=== PATIENT | male | born 1960 | race Caucasian/White ===

== ENCOUNTER 2016-04-18 11:48 | Day surgery (SDC) | payer BC ==
[~2016-04-18 11:48] MED LIST: Buffered Lidocaine 1% SYR 3ML* 3 ML/SYR SYRINGE INTRADERM ONE; Dexamethasone IV* 4 MG/ML 1 ML (4 MG) IV SLOW PU ONE; Famotidine IV* 10 MG/ML 2 ML (20 mg) IV ONE
[2016-04-18] MEDS ORDERED: Dexamethasone IV* 4 MG/ML 1 ML (4 MG) ONE (12:08)
[2016-04-18] MEDS ORDERED: ceFAZolin 2 GM PREMIX (*) 2 GM/50 ML BAG IVPB ONE (12:08)
[2016-04-18] MEDS ORDERED: Famotidine IV* 10 MG/ML 2 ML (20 mg) ONE (12:08)
[2016-04-18] MEDS ORDERED: Buffered Lidocaine 1% SYR 3ML* 3 ML/SYR SYRINGE ONE (12:09)
[2016-04-18] MEDS ORDERED: Bupivacaine 0.5% W/EPI SDV* 30 ML VIAL ONE (12:29)
[2016-04-18] MEDS ORDERED: fentaNYL* 50 MCG/ML 5 ML VIAL (250 MCG VIAL) ONE (13:10)
[2016-04-18] MEDS ORDERED: Atracurium* 10 MG/ML 10 ML VIAL ONE (13:11)
[2016-04-18] MEDS ORDERED: Ondansetron INJ* 2 MG/ML VIAL ONE (13:11)
[2016-04-18] MEDS ORDERED: Midazolam* 1 MG/ML 5 ML VIAL (5 MG) ONE (13:11)
[2016-04-18] MEDS ORDERED: Ketorolac INJ* 30 MG/ML 1 ML VIAL ONE (13:11)
[2016-04-18] MEDS ORDERED: Propofol* 10 MG/ML 20 ML BTL IV PUSH ONE (13:11)
[2016-04-18] MEDS ORDERED: Lidocaine 2% MPF* 2 ML VIAL ONE (13:11)
[2016-04-18] MEDS ORDERED: EPHEDrine (Pressors)* 50 MG/ML VIAL ONE (13:35)
[2016-04-18] MEDS ORDERED: oxyCODONE/Acetamin 5/325 MG* TAB PO PRN ×3 (13:52→14:51)
[2016-04-18] MEDS ORDERED: Desflurane* 240 ML INH ONE (13:54)
[2016-04-18] MEDS ORDERED: Ondansetron INJ* 2 MG/ML VIAL IV PRN (13:57)
[2016-04-18] MEDS ORDERED: fentaNYL* 50 MCG/ML 2 ML VIAL (100 MCG VIAL) IV PRN (13:57)
[2016-04-18] MEDS ORDERED: DiMENhydriNATE IV* 50 MG/ML VIAL IV PUSH PRN (13:57)
[2016-04-18] MEDS ORDERED: HYDROmorphone INJ* 1 MG/ML CARPUJECT SYRINGE IV PRN (13:57)
[2016-04-18] MEDS ORDERED: Scopolamine 1.5 mg* PATCH TRANSDERM PRN (13:57)
[2016-04-18 16:16] VITALS: BP 102/84
--- NOTE | 2016-04-20 20:46 | OP ---
CC: Kit Ellison MD OPERATIVE REPORT: DATE OF OPERATION: 04/18/16 DATE OF : 56 SURGEON: Bob Jones MD. DIRECTOR OF UNDERGRADUATE ADMISSIONS: None. ANESTHESIOLOGIST: Dr. Ivan. ANESTHESIA: General endotracheal. PREOPERATIVE DIAGNOSIS: Bilateral inguinal hernias. POST-OP DIAGNOSIS: Bilateral inguinal hernias. PROCEDURES: Laparoscopic preperitoneal repair of bilateral inguinal hernias with mesh. ESTIMATED BLOOD LOSS: Minimal. IV FLUIDS: Crystalloids. SPECIMEN: None. DRAINS: None. COMPLICATIONS: None. COUNTS: Instrument, needle, and sponge counts were correct. DESCRIPTION OF PROCEDURE: The patient was brought to the operating room and placed on the table supine. Sequential compression devices were placed in both lower extremities. General anesthesia was administered. Hess catheter was placed. Abdomen was prepped and draped in the usual sterile fashion. He received appropriate intravenous antibiotics. Time-out was performed. Local anesthetic was infiltrated into the skin and soft tissue prior to making each incision. Curvilinear infraumbilical incision was created first and then the rectus sheath was identified. To the right side of midline, the fascia was divided transversely and the underlying muscles retracted laterally and a preperitoneal balloon dissector was positioned down to the level of the pubic symphysis. This was insufflated under direct visualization and then removed and replaced with a 12- mm blunt port. Carbon dioxide was insufflated to a pressure of 12 mmHg. Under direct visualization, two 5-mm trocars were placed in the lower midline. Dissection proceeded first on the left side with identification of the pubic symphasis and Sandoval ligament. A direct inguinal hernia was noted. The inferior epigastric vessels were dissected free, maintained anteriorly and the dissection proceeded out laterally to the anterior - superior iliac spine. The reflection of the peritoneum was identified. The cord structures were dissected free from this, but they did not appear to be an indirect inguinal hernia component. The dissection then was performed on the right side. Again noted was a direct inguinal hernia. Again, inferior epigastric vessels were preserved. The peritoneum was dissected free from the cord structures. There was a small rent in the peritoneum, which was repaired by twisting it upon itself and then clipping it with a 5-mm clip national account executive. The dissection again proceeded laterally to the anterior- superior iliac spine. The repair was then performed with the Bard 3D Max large mesh for the right side. For the left side, repair was performed with a Bard polypropylene mesh, which was cut in a similar size to the large mesh patch. The mesh was placed into preperitoneal space and unfurled and covered the direct, indirect and femoral spaces. It was secured to the pubic tubercle, Sandoval's ligament and in the midline to the symphysis with a spiral tacker. Additionally, tacks were placed in the anterior abdominal wall musculature at the superior aspects. The tails of the mesh were positioned far laterally and as the preperitoneal space was desufflated, inspection was performed to ensure that the mesh lay in proper position. After removing the carbon dioxide and the ports, the infraumbilical wound was closed with 0 Polysorb in the interrupted fashion for the fascia. The skin incisions were closed with 4-0 Monocryl in subcuticular fashion. Steri-Strips were applied. The patient tolerated the procedure well, was extubated and transferred to recovery room in stable condition. [id number] #: [id number]
[2016-04-21] MEDS ORDERED: Scopolamine PATCH Remove* 1 NOTE MISC PATCH OFF ONE (13:58)
== END 2016-04-18 16:18 | disposition home or self-care (01) ==
LOC: OR 11:48
PROVIDERS: ATTEND Surgery
DX: K40.20 Bilateral inguinal hernia, without obstruction or gangrene, not specified as recurrent (principal)
CPT/HCPCS: A9270-GY; C1776; C1781; J0690; J1100; J1885; J2250; J2405; J2704; J3010